=== PATIENT | male | born 1995 | race Caucasian/White ===

== ENCOUNTER 2018-01-25 08:50 | Emergency (ER) | payer BC ==
[~2018-01-25] VITALS: Ht 182.9 cm; Wt 104.3 kg
[2018-01-25 08:50] VITALS: Ht 182.9 cm; Wt 104.3 kg
== END 2018-01-25 12:30 | disposition expired ==
LOC: ED 08:50
DX: I46.9 Cardiac arrest, cause unspecified (principal)